=== PATIENT | male | born 1965 | race Caucasian/White ===

== ENCOUNTER 2023-07-30 06:52 | Day surgery (SDC) | payer BC ==
[2023-07-30] MEDS: MIDAZOLAM 2 MG/2 ML VIAL IVP ONE (07:30)
[2023-07-30] MEDS: LACTATED RINGERS 1,000 ML IV SCH (07:30)
[2023-07-30 07:35] VITALS: RESP 16; TEMP 98.6
[2023-07-30] MEDS ORDERED: LIDOCAINE 1% INJ 10MG/ML (20 ML MDV) ONE (08:16)
[2023-07-30] MEDS ORDERED: PROPOFOL 10 MG/ML 20 ML VIAL IV ONE (08:16)
--- NOTE | 2023-07-30 09:00 | P.PCN ---
Date of Procedure: 07/30/23 Procedure(s) Performed: BRIEF HISTORY: Patient is a 57-year-old, pleasant, white male scheduled for an upper endoscopy as a part of evaluation of intermittent dysphagia to solids for the last 1 year duration.. PROCEDURE PERFORMED: Esophagogastroduodenoscopy with biopsy and dilation. PREOPERATIVE DIAGNOSIS: Intermittent dysphagia to solids of 1 year duration. IV sedation per anesthesia. PROCEDURE: After informed consent was obtained, the patient was brought into the endoscopy unit. IV sedation was administered by Anesthesia under continuous monitoring. Initially the Olympus GIF-140 video endoscope was inserted into the mouth. Esophagus intubated without any difficulty. It was gradually advanced into the stomach and duodenum and carefully examined. The bulb and the second part of the duodenum appeared normal. The scope at this time was withdrawn to the stomach, adequately insufflated with air, and upon careful examination, mucosa of the antrum, body, cardia and the fundus appeared normal. The scope was then withdrawn into the esophagus. There was distal esophageal stricture identified and this was dilated using 12-15 mm TTS balloon in a sequential fashion for 60 seconds. Following dilation there was a small mucosal tear with oozing identified and hence further dilation was not performed. The GE junction was located at 41 cm from the incisors. There was a 5-6 minute a polyp at the GE junction was biopsied. The mucosa of the mid and distal esophagus had thickened esophageal folds with multiple longitudinal ridges and edematous folds SUSPICIOUS for eosinophilic esophagitis and multiple biopsies were done from the mid and distal esophagus. The rest of the esophagus appeared normal. Patient tolerated the procedure well. IMPRESSION: 1. Distal esophageal stricture status post balloon dilation using 12-15 mm TTS balloon as described above. 2. 7 mm GE junction polyp status post biopsy 3. Thickened distal esophageal folds with longitudinal ridges and furrows suspicious for eosinophilic esophagitis status post multiple biopsies. RECOMMENDATIONS: The findings of this examination were discussed with the patient as well as his family. He was advised to be on a clear liquid diet for 2 hours. Start on omeprazole 20 mg daily. Follow-up in 2-3 weeks..
[2023-07-30 09:35] VITALS: BP 114/69; PULSE 66
== END 2023-07-30 09:37 ==
LOC: ORWHC2ENDO 06:52
PROVIDERS: ATTEND Internal Medicine Gastroenterology
DX: K22.2 Esophageal obstruction (principal); K22.82 Esophagogastric junction polyp; K20.90 Esophagitis, unspecified without bleeding; F90.9 Attention-deficit hyperactivity disorder, unspecified type; Z98.890 Other specified postprocedural states; Z87.891 Personal history of nicotine dependence; Z79.899 Other long term (current) drug therapy
CPT/HCPCS: 43239; 43249; J2250; J2001; J2704; C1726; 88305

== ENCOUNTER → 2024-11-10 | Outpatient (CLI) | payer BC ==
--- NOTE | 2024-11-10 17:13 | XR ---
EXAMINATION TYPE: XR knee complete RT DATE OF EXAM: 11/10/2024 11:58 AM COMPARISON: None. CLINICAL INDICATION: Male, 59 years old with history of M23.91 internal derangement R knee, pain TECHNIQUE: 3 view(s) obtained. FINDINGS: No acute fracture or dislocation evident. There is mild narrowing of the medial compartment joint spa ce. Minimal narrowing of the lateral compartment joint space is present. Patellofemoral joint space i s preserved. Large anterior inferior patellar spur is present. Small posterior superior patellar spur is present. No significant joint effusion. Follow up exams can be performed 7-10 days from acute trauma for continued pain. IMPRESSION: 1. Mild degenerative joint changes. [facility], , 11/10/2024 5:11 PM
== END | disposition home or self-care (01) ==
LOC: RADXRMAIN 11:36
PROVIDERS: ATTEND Family Medicine
DX: M17.11 Unilateral primary osteoarthritis, right knee (principal); M23.91 Unspecified internal derangement of right knee